=== PATIENT | male | born 1980 | race Caucasian/White ===

== ENCOUNTER → 2021-06-23 | Outpatient (CLI) | payer OTHER ==
[~2021-06-23] VITALS: Ht 172.7 cm; Wt 80.7 kg
[~2021-06-23] MED LIST: NEURONTIN300 MG PO; TRAMADOL 50 MG50 MG PO
[2021-06-23 09:15] VITALS: BP 115/82
--- NOTE | 2021-06-23 09:23 | NUR ---
Pain Clinic Assessment: 1. History of Osteoarthritis: Not Applicable History of Rheumatoid Arthritis: Not Applicable 2. Height: 5 ft. 8 in. 172.7 cm. Weight: 178.0 lb. oz. 80.740 kg. Patient's BMI: 27.1 3. Vital Signs: BP: 115/82 Pulse: 77 Resp: 16 Temp: 02 Sat: 97 ECG Mon: 4. Pain Intensity: 6 5. 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 Patient on Blood Thinner: None 7. History of Hypertension: N 8. Opioid Therapy greater than 6 weeks: N Opiate Contract Signed: 9. Risk Assessment Tool Provided: LOW-3 10. Functional Assessment Tool: 11. Recreational Drug Use: Never Drug Type: Tobacco Use: Current Every Day Smoker Tobacco Type: Cigarettes Amount or Packs/day: 1 PACK How Many Years: Alcohol Use: No Frequency: Quant:
--- NOTE | 2021-07-07 08:35 | HPC ---
[facility] [place] [address] PAIN MANAGEMENT CONSULTATION Name: JESSIKA ROPER Room #: REG [facility] [place]#: [id number] Admission: 06/23/21 Attend Phys: Patel Quarles DO Discharge: Date of : 82 Report #: [id number] THIS REPORT FOR: cc: Mustapha Christopher,Mustapha Woods,Patel Nash DO ~ cc: Liz Werner NP, Mustapha Christopher DO DATE OF SERVICE: 06/23/2021 REFERRING NURSE PRACTITIONER: Liz Werner. PRIMARY CARE PHYSICIAN: Dr. Mustapha Christopher. CHIEF COMPLAINT: Neck pain. HISTORY OF PRESENT ILLNESS: As you know, the patient is a very pleasant 41-year-old male who reports a longstanding history of neck pain with radiation to the upper extremities. 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 The patient states that recently, he began to experience bilateral upper extremity cramping with his neck extension and bilateral numbness and tingling radiating into the hands. He reports that traction has been helpful and he does continue to utilize it, but due to lack of improvement with conservative treatment, the patient was then sent on for evaluation of his cervical spine with imaging. MRI of the cervical spine shows changes at C5-C6. That was concerning enough, the patient was referred on to our clinic by his Rheumatology team to discuss interventional treatment options or therapeutic options. The patient was seen today 06/23/2021 where he reports constant symptoms. He describes his pain as burning, shooting, cramping, aching, sharp, stabbing, numbness and tingling when describing pain. Places current pain score 6/10. Daily average of 6/10, worst pain has been as 8/10. The patient states the pain is exacerbated with any type of cervical extension and utilizing his upper extremities. Improves with nothing to date. The patient has been referred to our service to discuss treatment options to address suspected cervical radiculopathy. PAST MEDICAL HISTORY: None. PAST SURGICAL HISTORY: 1. Herniorrhaphy 1995. 2. Herniorrhaphy 2004. 3. Fixation of collarbone in 2005. [address] [address] PAIN MANAGEMENT CONSULTATION Name: JESSIKA ROPER Room #: REG CL [facility].#: [id number] Admission: 06/23/21 Attend Phys: Patel Quarles DO Discharge: Date of : 82 Report #: [id number] SOCIAL HISTORY: The patient smokes 1 pack of tobacco per day, has done so for years. Denies IV or illicit drug use. Denies any chronic alcohol use. 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 He is working, not receiving workmen's compensation nor is trying to obtain disability benefits. He is not in litigation in regards to pain. He is unaccompanied at today's visit. REVIEW OF SYSTEMS: Positive for fatigue and weakness, numbness and tingling sensations involving the bilateral upper extremities and neck pain. All other review of systems negative per 12-point review of systems other than those listed in history of present illness. Pain impact score 20/70, indicating mild interference of daily activities secondary to pain. ALLERGIES: No drug allergies. CURRENT MEDICATIONS: Tramadol 50 mg 1-2 tabs every 6 hours p.r.n. for pain. IMAGING: MRI cervical spine obtained 05/13/2021, shows C1-C2 unremarkable. C2-C3 shows mild disk bulge with central protrusion. No significant facet or uncovertebral joint disease. No neural foraminal or central canal stenosis. C3-C4 shows posterior disk osteophyte complex with right central disk protrusion. No significant facet arthropathy. Mild right uncovertebral joint disease. Moderate right and mild left neural foraminal stenosis. Mild central canal stenosis. C4-C5 shows central disk protrusion. Mild facet and uncovertebral joint disease. Mild bilateral neural foraminal stenosis. Mild central canal stenosis. No deformity of the cord. C5-C6 shows posterior disk osteophyte complex, right central disk extrusion. Mild facet arthropathy. Moderate right and moderate bilateral uncovertebral joint disease resulting in [id number] bilateral foraminal stenosis. C6-C7 shows normal configuration. No facet arthropathy. No uncovertebral disease. No central canal or neural foraminal stenosis. C7-T1 unremarkable. PHYSICAL EXAMINATION: VITAL SIGNS: Blood pressure 115/82, pulse 77, respiratory rate 16 and unlabored. The patient 97% on room air. Height 5 feet 8 inches tall, weight 178 pounds, BMI calculated 27.1. GENERAL: Well-developed, well-nourished, well-hydrated 41-year-old male, reporting pain score 6/10. HEENT: Normocephalic, atraumatic. Pupils equal, round and responsive to light. Extraocular muscles are intact. Speech is fluent. The patient is wearing a mask in compliance with COVID-19 regulations. LUNGS: Clear, no wheeze, rhonchi or rales. [facility] [address] [place] [address] PAIN MANAGEMENT CONSULTATION Name: JESSIKA ROPER Room #: REG [facility] [place]#: [id number] Admission: 06/23/21 Attend Phys: Patel Quarles DO Discharge: Date of : 82 Report #: [id number] CARDIOVASCULAR: Regular. No appreciable gallop, no rub. ABDOMEN: Soft. EXTREMITIES: Show no clubbing, no cyanosis and no edema. MUSCULOSKELETAL: Upper extremity strength equal and symmetrical 5/5. Muscle bulk and tone is equal and symmetrical comparing upper extremities. Deep tendon reflexes are equal and symmetrical 2+/4 at biceps, brachialis and triceps. Spurling's test is equivocal. Cervical provocation testing is met with increasing pain. Extension of the cervical spine does cause radiation of symptoms toward the hands and in dermatomal distribution. Cervical provocation testing is met with increasing axial neck pain, no radiation of symptoms other than with the extension. ASSESSMENT: 1. Cervical radiculopathy. 2. 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 3. Displacement of a cervical intervertebral disk with radiculopathy. 4. Cervical facet arthropathy. PLAN: 1. Based on today's physical exam and history the patient has provided, the description the patient uses in regards to pain as well as location of symptoms, it would appear the patient is suffering from cervical radiculopathy. The description the patient uses in regards to pain are consistent with cervical radicular pain. The patient reports mainly pain with extension of the cervical spine, which he has to do on a daily basis as he is a ansari and does a significant amount of work above his head. We have discussed with the patient the findings of his MRI dated from 04/2021 and correlated the findings therein to the symptoms the patient has been experiencing. After that discussion, we discussed the treatment options following was discussed with the patient today. We discussed physical therapy, stretching exercises and traction techniques as a treatment course. We discussed medication management, adding neuropathic medications such as amitriptyline, nortriptyline, Cymbalta, Lyrica or gabapentin as a treatment option. This could provide good analgesic benefit and hopefully no side effects. We discussed cervical epidural injections under fluoroscopic guidance, which could improve the symptoms considerably. We also discussed surgical options with the patient with decompression of the C5-C6 level. After reviewing the risks and benefits of all proposed treatment options, the patient chose to begin with conservative treatment starting with gabapentin. 2. The patient was provided prescription of gabapentin 300 mg dose. He will begin 1 tab p.o. at bedtime for 3 nights, increasing to 2 tabs p.o. at bedtime for 3 nights. If no improvement in symptoms, no side effects, then 3 tabs p.o. at bedtime for 3 nights. If again the patient is experiencing no side effects of sleepiness, disorientation, confusion, mental slowing and no improvement in symptoms, he will then begin daytime dose, one in the morning, continuing 3 at night for 3 nights, then 2 at morning for 3 nights and then ultimately [address] [address] PAIN MANAGEMENT CONSULTATION Name: JESSIKA ROPER Room #: REG CL [place]#: [id number] Admission: 06/23/21 Attend Phys: Patel Quarles DO Discharge: Date of : 82 Report #: [id number] morning, 3 at night, which will be our first goal dose. The patient was provided a prescription of 180 tablets of gabapentin 300 mg sent to his local pharmacy. The patient was advised anytime during the titration, he notes improvement in symptoms, stabilize at that dose, no further escalation. No improvement in symptoms, no side effects, continue the titration as directed. 3. Plan to see the patient back in followup visit in approximately 30 days. At that time, review the efficacy of the medications and determine if adjustments need to be made in medication management or look towards interventional treatments. 4. We wish to thank nurse practitioner Liz Werner for the opportunity to see the patient in consultation. We will keep you apprised of response to treatment. Again, we wish to thank you for the opportunity to see the patient in consultation. <ELECTRONICALLY SIGNED> By: Patel Quarles DO 07/07/21 0835 [id number] [id number] Patel Quarles DO /nt
== END ==
LOC: PAIN 06-22 10:04
PROVIDERS: ATTEND Anesthesiology Pain Medicine
DX: M50.10 Cervical disc disorder with radiculopathy, unspecified cervical region (principal); M47.22 Other spondylosis with radiculopathy, cervical region; M48.02 Spinal stenosis, cervical region

== ENCOUNTER → 2021-07-01 | Outpatient (CLI) | payer OTHER ==
[~2021-07-01] VITALS: Ht 172.7 cm; Wt 82.2 kg
[2021-07-01 09:29] VITALS: BP 117/90
--- NOTE | 2021-07-01 09:38 | NUR ---
Pain Clinic Assessment: 1. History of Osteoarthritis: Not Applicable History of Rheumatoid Arthritis: Not Applicable 2. Height: 5 ft. 8 in. 172.7 cm. Weight: 181.2 lb. oz. 82.192 kg. Patient's BMI: 27.6 3. Vital Signs: BP: 117/90 Pulse: 86 Resp: 14 Temp: 02 Sat: 97 ECG Mon: 4. Pain Intensity: 2 5. 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 Patient on Blood Thinner: None 7. History of Hypertension: N 8. Opioid Therapy greater than 6 weeks: N Opiate Contract Signed: 9. Risk Assessment Tool Provided: LOW-3 10. Functional Assessment Tool: 11. Recreational Drug Use: Never Drug Type: Tobacco Use: Current Every Day Smoker Tobacco Type: Cigarettes Amount or Packs/day: 1 pack How Many Years: Alcohol Use: No Frequency: Quant:
--- NOTE | 2021-07-07 08:35 | HPC ---
[facility] [place] [address] PAIN MANAGEMENT CONSULTATION Name: JESSIKA ROPER Room #: REG [facility] [place]#: [id number] Admission: 07/01/21 Attend Phys: Patel Quarles DO Discharge: Date of : 82 Report #: [id number] THIS REPORT FOR: cc: Mustapha Christopher,Mustapha Woods,Patel Nash DO ~ cc: Mustapha Christopher DO DATE OF SERVICE: 07/01/2021 CHIEF COMPLAINT: Neck pain, bilateral upper extremity pain. HISTORY OF PRESENT ILLNESS: As you know, the patient is a very pleasant 41-year-old male who reports years of ongoing neck pain that has progressively worsened. 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 This has led to chronic neck pain issues. He began to experience bilateral upper extremity cramping and numbness and tingling, which precipitated evaluation through his Rheumatology team. The patient underwent imaging, which showed changes at C5-C6 level consistent with his symptoms and he was referred on to our clinic to discuss treatment options. We saw the patient in consultation on 06/23/2021 where we started the patient on gabapentin for neuropathic pain control. He returns today stating that the side effects of medication were too great. He was experiencing side effects of sleepiness, disorientation, confusion and mental slowing and he subsequently discontinued the gabapentin and those symptoms resolved. He returns today in followup visit to discuss his treatment options. He is unwilling to look towards any of the other neuropathic medications due to concerns of side effects with the therapy previously trialled. He returns to discuss options for treatment. Today, the patient is placing his pain score 2/10. Describes the pain as constant cramping, numbness, burning, shooting, aching, sharp and stabbing when describing symptoms exacerbated with sitting and working. Improves with nothing to date. ALLERGIES: NO KNOWN DRUG ALLERGIES. CURRENT MEDICATIONS: Tramadol. SOCIAL HISTORY: The patient smokes 1 pack of tobacco per day, has done so for years. Denies IV or illicit drug use. Denies any chronic alcohol use. He continues to work as a ansari. He is unaccompanied at today's visit. IMAGING: No new imaging available. PHYSICAL EXAMINATION: VITAL SIGNS: Blood pressure 117/90, pulse is 86, respiratory rate 14 and unlabored. The patient 97% on room air. Height 5 feet 8 inches tall, weight [facility] [address] [place] [address] PAIN MANAGEMENT CONSULTATION Name: JESSIKA ROPER Room #: REG [facility]#: [id number] Admission: 07/01/21 Attend Phys: Patel Quarles DO Discharge: Date of : 82 Report #: [id number] 181.2 pounds, BMI calculated 27.6. GENERAL: Well-developed, well-nourished, well-hydrated 41-year-old male appearing stated age, pain is rated today at 2/10. HEENT: Normocephalic, atraumatic. Pupils are round and responsive. He is wearing a mask in compliance with COVID-19 regulations. EXTREMITIES: Show no clubbing, no cyanosis, no edema. MUSCULOSKELETAL: Upper extremity strength remains symmetrical 5/5. Muscle bulk and tone is equal and symmetrical. Spurling's test is equivocal once again today. Cervical provocation testing met with increasing pain and some palpatory tenderness over the paraspinal musculature of cervical spine. ASSESSMENT: 1. Cervical radiculopathy. 2. Neural foraminal stenosis of cervical spine. 3. Displacement of cervical intervertebral disk with radiculopathy. 4. Chronic intractable pain. PLAN: 1. The patient returns today in followup visit indicating that the gabapentin was started at her last visit and with constant side effects of sleepiness, disorientation and mental slowing, the patient subsequently discontinued the medication, side effects discontinued. We did discuss with the patient that we have other neuropathic pain medications such as amitriptyline, nortriptyline, Cymbalta and Lyrica, which might be beneficial. The patient is resistant to look towards medications given the side effects he had with the gabapentin. The patient is more considering surgical options at this time. He does not wish to look towards interventional treatment such as the proposed cervical epidural injection from our visit of 06/23/2021. The patient is looking for "fix." 2. The patient has requested that we provide a referral to Neurosurgery for evaluation. I have provided the referral to the Neurosurgery team, but advised the patient I would not recommend surgical options at this time. The findings of his imaging study show at worst moderate to severe neural foraminal stenosis and I believe that a more conservative treatment approach would be recommended, though the patient is resistant to look towards other medications or the proposed cervical epidural injection. We did discuss that a possible change in his workup would be appropriate. If the patient can reduce the hyperextension of the cervical spine, this would improve his symptoms quite considerably. The patient indicates he would not be able to do so in current job. He wishes to discuss this with surgeon to determine if he does have a surgical option available. We have agreed to provide the patient with a referral to Surgery, understanding that we at this point do not recommend that option of aggressive treatment. He will follow up with Neurosurgery and he can decide on his own what treatment he feels most appropriate. 3. We made no changes in the patient's medication management at this time. We did discuss the possibility of adjusting to other neuropathic medications, but the patient is resistant due to the side effects to the gabapentin. [facility] [address] [place] [address] PAIN MANAGEMENT CONSULTATION Name: ROPERJESSIKA Room #: REG [facility] [place]#: [id number] Admission: 07/01/21 Attend Phys: Patel Quarles DO Discharge: Date of : 82 Report #: [id number] 4. We plan to see the patient back in followup visit on an as needed basis. We wish him luck with the evaluation of the cervical spine with Neurosurgery. We will be available to see him back in followup visit if interventional treatments are necessary. I did advise the patient at this time, we are not providing treatment from a cervical medial branch nerve blocks. If these are the options they would like the patient to see he had to find a service that is offering medial branch nerve blocks of the cervical spine or radiofrequency lesioning of the cervical spine. We will be available to see the patient back in followup visit p.r.n. <ELECTRONICALLY SIGNED> By: Patel Quarles DO 07/07/21 0835 [id number] [id number] Patel Quarles DO /nt
== END ==
LOC: PAIN 06:57
PROVIDERS: ATTEND Anesthesiology Pain Medicine
DX: M50.10 Cervical disc disorder with radiculopathy, unspecified cervical region (principal); M48.02 Spinal stenosis, cervical region; G89.29 Other chronic pain; M79.602 Pain in left arm; M79.601 Pain in right arm